=== PATIENT | female | born 2000 | race African-American/Black ===

== ENCOUNTER 2021-05-05 21:17 | Emergency (ER) | payer OTHER ==
[~2021-05-05] VITALS: Ht 170.2 cm; Wt 77.1 kg
[2021-05-05] MEDS ORDERED: ACETAMINOPHEN 325 MG TAB PO ONE (21:45)
[2021-05-05 22:53] VITALS: BP 142/93
[2021-05-06] MEDS ORDERED: GUAI600T23 PO (01:25)
[2021-05-06] MEDS ORDERED: ALBUAER3 IN (01:25)
== END 2021-05-06 02:55 | disposition home or self-care (01) ==
LOC: EDBD 21:21 → ER 21:21
DX: U07.1 COVID-19 (principal)
CPT/HCPCS: 36415; 87426